=== PATIENT | male | born 1960 | race Caucasian/White ===

== ENCOUNTER → 2019-08-03 | Outpatient (CLI) | payer BC, OTHER ==
[~2019-08-03] VITALS: Ht 180.3 cm; Wt 104.3 kg
[~2019-08-03] MED LIST: CHILDREN'S ZYRT10 M1 PO; CLOPIDOGREL75 MG PO; LIPITOR40 MG PO; METOPROLOL SUCC25 M1 PO; VASCEPA1 GM PO
[2019-08-03 08:53] LABS: HEMATOCRIT 45.5 % (42.0-52.0); HEMOGLOBIN 15.3 gm/dL (14.0-18.0); MCH 30.5 pg (26.0-34.0); MCHC 33.6 g/dL (28.0-37.0); MCV 90.6 fL (80.0-100.0); RBC 5.02 mil/uL (4.50-6.00); RDW 13.5 % (10.5-14.5)
[2019-08-03 08:56] VITALS: BP 130/73
[2019-08-03 09:02] LABS: ANION GAP 10 mmol/L (7-16); BUN 12 mg/dL (7-18); CALCIUM 9.1 mg/dL (8.5-10.1); CHLORIDE 104 mmol/L (98-107); CO2 26 mmol/L (21-32); CREATININE 1.1 mg/dL (0.7-1.3); GLUCOSE 120 mg/dL (74-106); SODIUM 140 mmol/L (136-145)
[2019-08-03 09:08] LABS: CHOLESTEROL 115 mg/dL (<200); HDL CHOLESTEROL 53 mg/dL (>40); LDL CHOLESTEROL 56 mg/dL (<100); TC:HDL 2.2 Ratio (Not establshd); TRIGLYCERIDE 34 mg/dL (<150); VLDL 7 mg/dL (<40)
--- NOTE | 2019-08-03 11:37 | CATHLAB ---
[facility] [address] [place] [address] INVASIVE PROCEDURE REPORT Name: PIYUSH MAHAN [id number] Admission: 08/03/19 Attend Phys: Herminio Campbell MD Discharge: Date of : 58 Report #: [id number] THIS REPORT FOR: //name// APPROVED REPORT Study performed: 08/03/2019 09:01:56 Patient Details Patient Status: Out-Patient Room #: The patient is a 59 year-old male Event Personnel Herminio Campbell Transmission Builder, Rufina Henning RN RN, Cecilio Rocha RN, Jacquelyn Martinez RTMk Beltran David Monitor Procedures Performed Left Heart Cath w/or w/o Coronaries [id number] [facility] Indication Dyspnea, Positive stress test Risk Factors Hypercholesterolemia, Coronary Artery DiseaseHypertension Previous Procedures/Diagnoses Previous PCI Procedure Narrative The Right Groin^ was infiltrated with 1% Lidocaine subcutaneous anesthesia. A PINNACLE 4FR Sheath #[id number] sheath was inserted into the RFA^. Coronary angiography was performed using coronary diagnostic catheters. The right coronary system was accessed and visualized with a JR4 catheter. The left coronary system was accessed and visualized with a JL4 catheter. The left ventricle was accessed and visualized with a PIGTAIL catheter. Left ventricular/Aortic Valve gradient assessed via catheter pullback. Left ventriculogram was performed in 30 degree projection. Hemostasis was obtained with manual pressure following sheath removal without any complications. The patient tolerated the procedure well and there were no complications associated with the procedure. There was no hematoma. Intraoperative Conscious Sedation Sedation start time: 9.42 Case end Time: [facility] [address] [place] [address] INVASIVE PROCEDURE REPORT Name: PIYUSH MAHAN Room #: REG [facility]#: [id number] Admission: 08/03/19 Attend Phys: Herminio Campbell MD Discharge: Date of : 58 Report #: [id number] 10.06 Fentanyl 50 mcg Versed 1.5 mg Fluoro Time: 1.51 minutes Dose: DAP 4781.00 cGycm2 615 mGy Contrast Type and Amount: Omnipaque 85 ml Coronary Angiography The patient's coronary anatomy is right dominant. Diagnostic Cath Left Main This is a large caliber vessel, patent with no flow-limiting lesions. LAD This is a moderate size caliber vessel, traversing the anterior wall and wrapping around the apex. This vessel is patent with mild disease in the mid segment, 20%. Diagonal 1 This is a patent vessel, with no flow-limiting lesions. Diagonal 2 This is a patent vessel, with no flow-limiting lesions. Circumflex This is a moderate size caliber vessel, with a mild stenosis in the mid segment, 30%. OM1 This is a moderate size caliber vessel, patent with no flow-limiting lesions. OM2 This is a moderate size caliber vessel, patent with no flow-limiting lesions. Right Coronary This is a dominant vessel with moderate disease in the proximal and distal segments. There is a stent in the distal segment, patent with moderate restenosis, 40-50%. R PDA This is a moderate size caliber vessel, patent with no flow-limiting lesions. RPLV This is a small-caliber vessel, patent with no flow-limiting lesions. Left Ventriculography The left ventricle is normal in size with decreased contractility. The left ventricular ejection fraction is estimated to be 45%. There is hypokinesis of the inferior wall. Hemodynamics The aortic pressure is 135/81 mmHg with a mean of 96 mmHg. The left ventricular pressure is 117/9 mmHg with a mean of mmHg. The left ventricular end diastolic pressure is 22 mmHg. There was no gradient across the aortic valve upon pullback. Pullback from the left ventricle to the aorta revealed no gradient across the aortic valve. [facility] [address] [place] [address] INVASIVE PROCEDURE REPORT Name: PIYUSH MAHAN Room #: REG [facility]#: [id number] Admission: 08/03/19 Attend Phys: Herminio Campbell MD Discharge: Date of : 58 Report #: [id number] Conclusion 1. There is a patent stent in the distal RCA with moderate restenosis. 2. Mild disease in the left circumflex and LAD. 3. Mild segmental LV dysfunction, hypokinesis inferiorly. 4. Recommend aggressive risk factor management. <ELECTRONICALLY SIGNED> By: Herminio Campbell MD 08/03/19 1136 1136 1136 Herminio Campbell MD /INF
--- NOTE | 2019-08-04 08:50 | EKG ---
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: Frankie CORREA : 1960 Requested By: Herminio Campbell Order Number: [id number] MD: Artemio Poole Measurements Intervals [place] Rate: 79 P: 56 NC: 138 QRS: -16 QRSD: 90 T: 6 QT: 371 QTc: 426 Interpretive Statements Sinus arrhythmia Multiple ventricular premature complexes Inferior infarct, old No previous ECG available for comparison Electronically Signed On 08-04-2019 8:49:53 MANAGER INTERFACE by Artemio Poole [email or web address] <ELECTRONICALLY SIGNED> By: Artemio Poole MD, [facility] 08/04/19 0849 0839 0839 Artemio Poole MD, FACC /EPI
== END | disposition home or self-care (01) ==
LOC: CATH 08:11
PROVIDERS: Internal Medicine Cardiovascular Disease
DX: R94.39 Abnormal result of other cardiovascular function study (principal); R06.00 Dyspnea, unspecified; I25.10 Atherosclerotic heart disease of native coronary artery without angina pectoris; I10 Essential (primary) hypertension; E78.00 Pure hypercholesterolemia, unspecified; I25.2 Old myocardial infarction; M19.90 Unspecified osteoarthritis, unspecified site; K21.9 Gastro-esophageal reflux disease without esophagitis; Z98.61 Coronary angioplasty status; Z98.890 Other specified postprocedural states; Z79.899 Other long term (current) drug therapy; Z87.891 Personal history of nicotine dependence; Z88.8 Allergy status to other drugs, medicaments and biological substances

== ENCOUNTER → 2020-03-25 | Outpatient (CLI) | payer BC, OTHER | LOC: SJCVCIMAG 02-23 11:12 | PROVIDERS: ATTEND Internal Medicine Cardiovascular Disease | DX: I07.1 Rheumatic tricuspid insufficiency (principal); I25.10 Atherosclerotic heart disease of native coronary artery without angina pectoris; I10 Essential (primary) hypertension ==

== ENCOUNTER → 2021-03-31 | Outpatient (CLI) | payer BC, OTHER | LOC: SJCVCIMAG 08:55 | PROVIDERS: ATTEND Internal Medicine Cardiovascular Disease | DX: I49.3 Ventricular premature depolarization (principal); I25.10 Atherosclerotic heart disease of native coronary artery without angina pectoris; I10 Essential (primary) hypertension; E78.5 Hyperlipidemia, unspecified; R06.00 Dyspnea, unspecified; R53.83 Other fatigue; Z98.61 Coronary angioplasty status ==